=== PATIENT | female | born 1960 | race Caucasian/White ===

== ENCOUNTER 2017-10-04 08:29 | Day surgery (SDC) | payer OTHER ==
[~2017-10-04 08:29] MED LIST: ACETAMINOPHEN; ALPR.5 PO; AMIT10 PO; AMLO5 PO; AMOCLA500 PO; BACL10 PO; CARI350 PO; CIME400 PO; CIPRO; DEXA4 PO; DIFLUCAN; ESOM20 PO; FLUC100; GABA300 PO; HYDACE10B PO; HYDACE7.5; HYDPAM50 PO; HYDR-86 PO; HYDROCODONE; IBUP400 PO; IBUP800; KETO10 PO; LEVFLO500; LIDO5TP; METPRE4DP PO; MORP30ER PO; Maxalt10 MG PO; OXYACE5T PO; OXYC5 PO; Omeprazole20 M1 PO; PROM25 PO; Synthroid25 MCG PO; TIZA4; TRAM50 PO; ZOLP10; ZOLP5 PO
[2017-11-14] MEDS ORDERED: MELO7.5 PO (16:01)
[2017-11-14] MEDS ORDERED: FLUC100 PO (16:01)
[2017-11-14] MEDS ORDERED: METR500 PO (16:02)
[2017-11-14] MEDS ORDERED: D-MANNOSE1 GM PO (16:03)
[2017-11-14] MEDS ORDERED: 5 HTP PO (16:06)
[2017-11-14] MEDS ORDERED: Voltaren100 GM TOP (16:07)
[2017-11-14] MEDS ORDERED: Maxalt Mlt10 MG PO (16:08)
[2017-11-14] MEDS ORDERED: ONDA8 PO (16:09)
[2017-11-14] MEDS ORDERED: FLUCONAZOLE PO (16:15)
== END 2017-10-04 23:11 | disposition home or self-care (01) ==
LOC: MOI MAM 08:29
PROC: 0HBT3ZX Excision of Right Breast, Percutaneous Approach, Diagnostic (ICD-10-PCS; principal; 2017-10-04)
DX: C50.311 Malignant neoplasm of lower-inner quadrant of right female breast (principal); Z17.1 Estrogen receptor negative status [ER-]
CPT/HCPCS: 19083; 88305; 88360; A4648; G0206

== ENCOUNTER 2017-11-20 06:04 | Day surgery (SDC) | payer OTHER ==
[~2017-11-20] VITALS: Ht 160 cm; Wt 121.6 kg
[~2017-11-20 06:04] MED LIST changes: +5 HTP PO; +D-MANNOSE1 GM PO; +FLUC100 PO; +FLUCONAZOLE PO; +MELO7.5 PO; +METR500 PO; +Maxalt Mlt10 MG PO; +ONDA8 PO; +Voltaren100 GM TOP
== END 2017-11-20 22:56 | disposition home or self-care (01) ==
LOC: ORSCMMR 06:04 → ORD 07:30 → ORSCMMR 22:56
PROVIDERS: Surgery
PROC: 02HV33Z Insertion of Infusion Device into Superior Vena Cava, Percutaneous Approach (ICD-10-PCS; principal; 2017-11-20 07:30)
DX: C50.811 Malignant neoplasm of overlapping sites of right female breast (principal); I10 Essential (primary) hypertension; E03.9 Hypothyroidism, unspecified; R06.02 Shortness of breath; E66.01 Morbid (severe) obesity due to excess calories; Z68.42 Body mass index [BMI] 45.0-49.9, adult; Z79.899 Other long term (current) drug therapy
CPT/HCPCS: 77001; C1788; J0690; J1642; J2250; J3010; J7120

== ENCOUNTER 2018-03-17 07:34 | Day surgery (SDC) | payer OTHER ==
[~2018-03-17] VITALS: Ht 160 cm; Wt 116.6 kg
== END 2018-03-17 12:30 | disposition home or self-care (01) ==
LOC: ORSCMMR 07:34 → NM 07:34 → ORSCMMR 10:02 → NM 12:30
PROVIDERS: Surgery
PROC: 07B50ZX Excision of Right Axillary Lymphatic, Open Approach, Diagnostic (ICD-10-PCS; principal; 2018-03-17 11:00)
PROC: 0HBT0ZZ Excision of Right Breast, Open Approach (ICD-10-PCS; principal; 2018-03-17 11:00)
DX: C50.811 Malignant neoplasm of overlapping sites of right female breast (principal); Z17.1 Estrogen receptor negative status [ER-]; D36.0 Benign neoplasm of lymph nodes; I10 Essential (primary) hypertension; K21.9 Gastro-esophageal reflux disease without esophagitis; F41.9 Anxiety disorder, unspecified; E66.01 Morbid (severe) obesity due to excess calories; Z68.42 Body mass index [BMI] 45.0-49.9, adult; Z79.899 Other long term (current) drug therapy
CPT/HCPCS: 19281; 38792; 88305; 88307; 88342; A9520; J0690; J1100; J1885; J2250; J2405; J2710; J3010; J7120; Q9968

== ENCOUNTER → 2019-02-05 | Outpatient (CLI) | payer OTHER | LOC: LAB 18:39 → LAB SHORT 18:39 | DX: N39.0 Urinary tract infection, site not specified (principal) | CPT/HCPCS: 87086 ==

== ENCOUNTER → 2020-02-16 | Outpatient (CLI) | payer OTHER | END | disposition home or self-care (01) | LOC: LAB 18:26 → LAB SHORT 18:26 | DX: R30.9 Painful micturition, unspecified (principal) | CPT/HCPCS: 87077; 87086; 87186 ==

== ENCOUNTER 2020-07-13 18:30 | Emergency (ER) | payer OTHER ==
[~2020-07-13] VITALS: Ht 157.5 cm; Wt 117.9 kg
[~2020-07-13 18:30] MED LIST changes: +CEFP200 PO; +HYDR1TAB94 PO; +TAMS.4ER PO
[2020-07-13 19:07] LABS: BASOPHILS ABSOLUTE AUTO 0.03 K/mm3 (0.00-0.23); BASOPHILS PERCENT AUTO 0 % (0-2); EOSINOPHILS ABSOLUTE AUTO 0.01 K/mm3 (0.00-0.68); EOSINOPHILS PERCENT AUTO 0 % (0-6); Hematocrit 42.5 % (33.0-51.0); Hemoglobin 13.8 g/dL (11.5-16.0); IMMATURE GRAN ABSOLUTE AUTO 0.03 K/mm3 (0.00-0.10); IMMATURE GRAN PERCENT AUTO 0 % (0-1); LYMPHOCYTES ABSOLUTE AUTO 1.37 K/mm3 (0.84-5.20); LYMPHOCYTES PERCENT AUTO 19 % (21-46); MONOCYTES ABSOLUTE AUTO 0.61 K/mm3 (0.16-1.47); MONOCYTES PERCENT AUTO 8 % (4-13); Mean Corpuscular HGB 30.1 pg (26.0-34.0); Mean Corpuscular HGB Conc 32.5 g/dL (31.5-36.5); Mean Corpuscular Volume 93 fL (80-100); Mean Platelet Volume 9.9 fL (9.1-12.4); NEUTROPHILS ABSOLUTE AUTO 5.22 K/mm3 (1.96-9.15); NEUTROPHILS PERCENT AUTO 72 % (41-73); Platelet Count 252 K/mm3 (150-400); RDW Coefficient Variation 12.8 % (11.7-14.2); RDW Standard Deviation 43.9 fL (35.1-46.3); Red Blood Cell Count 4.59 M/mm3 (3.80-5.20); White Blood Cell Count 7.27 K/mm3 (4.00-11.30)
[2020-07-13 19:36] LABS: Troponin I <0.015 ng/mL (0.000-0.040)
[2020-07-13 20:10] LABS: Alanine Aminotransfer (ALT/SGP 26 U/L (12-78); Albumin, Blood 3.9 g/dL (3.4-5.0); Alk Phos 119 U/L (50-136); Anion Gap 5 mmol/L (6-16); Aspartate Aminotrans (AST/SGOT 20 U/L (12-37); Bilirubin, Total 0.5 mg/dL (0.1-1.0); Blood Urea Nitrogen 6 mg/dL (8-24); Bun/Creatinine Ratio 11.7 (12.0-20.0); CO2, Blood 29 mmol/L (21-32); Calcium, Blood 10.1 mg/dL (8.5-10.1); Chloride, Blood 107 mmol/L (98-108); Creatinine, Blood 0.52 mg/dL (0.40-1.00); Globulin, Blood 4.1 g/dL (2.2-4.0); Glomerular Filtration Rate >60 (60-); Glucose, Blood 130 mg/dL (70-99); Potassium, Blood 3.7 mmol/L (3.5-5.5); Sodium, Blood 141 mmol/L (136-145)
== END 2020-07-13 20:36 | disposition home or self-care (01) ==
LOC: ER 18:30
PROVIDERS: Physician Assistant
DX: M54.12 Radiculopathy, cervical region (principal); R07.9 Chest pain, unspecified; M54.5 Low back pain; F41.9 Anxiety disorder, unspecified; E11.9 Type 2 diabetes mellitus without complications; I50.9 Heart failure, unspecified; Z79.899 Other long term (current) drug therapy
CPT/HCPCS: 36415; 71046; 72125; 72128; 72131; 80053; 84484; 85025; 93005; 93010; 96374; 99284-25; J2060

== ENCOUNTER 2021-01-01 20:31 | Emergency (ER) | payer OTHER ==
[~2021-01-01] VITALS: Ht 157.5 cm; Wt 111.1 kg
== END 2021-01-01 23:00 | disposition left against medical advice (07) ==
LOC: ER 20:31
DX: Z53.21 Procedure and treatment not carried out due to patient leaving prior to being seen by health care provider (principal)
CPT/HCPCS: 72100

== ENCOUNTER → 2021-04-14 | Outpatient (CLI) | payer OTHER ==
[2021-04-14 19:11] LABS: BASOPHILS ABSOLUTE AUTO 0.05 K/mm3 (0.00-0.23); BASOPHILS PERCENT AUTO 1 % (0-2); EOSINOPHILS PERCENT AUTO 0 % (0-6); Hematocrit 38.2 % (33.0-51.0); Hemoglobin 12.3 g/dL (11.5-16.0); IMMATURE GRAN ABSOLUTE AUTO 0.02 K/mm3 (0.00-0.10); IMMATURE GRAN PERCENT AUTO 0 % (0-1); LYMPHOCYTES ABSOLUTE AUTO 1.34 K/mm3 (0.84-5.20); LYMPHOCYTES PERCENT AUTO 18 % (21-46); MONOCYTES PERCENT AUTO 8 % (4-13); Mean Corpuscular HGB 29.8 pg (26.0-34.0); Mean Corpuscular HGB Conc 32.2 g/dL (31.5-36.5); Mean Corpuscular Volume 93 fL (80-100); Mean Platelet Volume 10.9 fL (9.1-12.4); NEUTROPHILS ABSOLUTE AUTO 5.37 K/mm3 (1.96-9.15); NEUTROPHILS PERCENT AUTO 73 % (41-73); Platelet Count 241 K/mm3 (150-400); RDW Coefficient Variation 12.8 % (11.7-14.2); RDW Standard Deviation 43.9 fL (35.1-46.3); Red Blood Cell Count 4.13 M/mm3 (3.80-5.20); White Blood Cell Count 7.38 K/mm3 (4.00-11.30)
[2021-04-14 19:17] LABS: Magnesium, Blood 2.1 mg/dL (1.6-2.4); Phosphorus, Blood 2.8 mg/dL (2.5-4.9)
[2021-04-14 19:25] LABS: Anion Gap 3 mmol/L (6-16); Blood Urea Nitrogen 13 mg/dL (8-24); Bun/Creatinine Ratio 20.6 (12.0-20.0); CO2, Blood 29 mmol/L (21-32); Calcium, Blood 9.7 mg/dL (8.5-10.1); Chloride, Blood 107 mmol/L (98-108); Creatinine, Blood 0.63 mg/dL (0.40-1.00); Glomerular Filtration Rate >60 (60-); Glucose, Blood 98 mg/dL (70-99); Potassium, Blood 3.8 mmol/L (3.5-5.5); Sodium, Blood 139 mmol/L (136-145)
== END | disposition home or self-care (01) ==
LOC: LAB SHORT 17:10 → LAB 17:10
PROVIDERS: Family Medicine
DX: E03.9 Hypothyroidism, unspecified (principal); L03.90 Cellulitis, unspecified; R25.2 Cramp and spasm
CPT/HCPCS: 80048; 83735; 84100; 84443; 85025

== ENCOUNTER → 2021-05-02 | Outpatient (CLI) | payer OTHER ==
[2021-05-02 19:17] LABS: Source, Urine Voided
[2021-05-02 19:48] LABS: Appearance, Urine Hazy (Clear); Bilirubin, Urine Neg (Neg); Blood, Urine Neg (Neg); Color, Urine Yellow (P-Yellow); Glucose Qualitative, Urine Neg (Neg); Ketones, Urine Neg (Neg); Leukocyte Esterase, Urine Neg (Neg); Nitrite, Urine Neg (Neg); Protein, Urine Neg (Neg); Urobilinogen, Urine NORM (Normal)
[2021-05-02 20:06] LABS: Amorphous Mod (0-Heavy); Bacteria Rare /hpf; Red Blood Cells, Urine Not Seen /hpf (0-2); Squamous Epithelial Cells Rare /hpf (Few); White Blood Cells, Urine 0-2 /hpf (0-5)
== END | disposition home or self-care (01) ==
LOC: LAB SHORT 17:00
PROVIDERS: Nurse Practitioner Family
DX: N39.0 Urinary tract infection, site not specified (principal)
CPT/HCPCS: 81001

== ENCOUNTER 2024-10-25 00:42 | Inpatient (IN) | payer OTHER ==
[~2024-10-25] VITALS: Ht 157.5 cm; Wt 109.6 kg
[~2024-10-25 00:42] MED LIST changes: +BUMETANIDE2 M6 PO; +CEPH500 PO; +CINACALCET HCL30 M1 PO; +Clotrimazole-Be15 GM TP; +Diflucan100 MG PO; +METO5 PO; +MS Contin15 MG PO; +POTA10T PO; +RIZATRIPTAN10 M3 PO; +SPIRONOLACTONE25 MG PO
[2024-10-25] MEDS ORDERED: Ketorolac Tromethamine 30mg Vial IV ONE (04:50)
[2024-10-25] MEDS ORDERED: CefTRIAXone Sodium 1,000 MG in NS 50 ML IV ONE (04:50)
[2024-10-25] MEDS ORDERED: Trimethoprim/Sulfamethoxazole DS Tab PO ONE (04:50)
[2024-10-25] MEDS ORDERED: Diphth,Pertuss(Acell),Tet Vac 0.5 ML VIAL IM ONE (04:50)
[2024-10-25] MEDS ORDERED: Morphine Sulfate 10 MG/ML 1MLSYR IV ONE (05:25)
[2024-10-25 05:38] LABS: BASOPHILS ABSOLUTE AUTO 0.06 K/mm3 (0.00-0.23); BASOPHILS PERCENT AUTO 1 % (0-2); EOSINOPHILS PERCENT AUTO 2 % (0-6); Hematocrit 39.5 % (33.0-51.0); Hemoglobin 12.9 g/dL (11.5-16.0); IMMATURE GRAN ABSOLUTE AUTO 0.09 K/mm3 (0.00-0.10); IMMATURE GRAN PERCENT AUTO 1 % (0-1); LYMPHOCYTES ABSOLUTE AUTO 1.73 K/mm3 (0.84-5.20); LYMPHOCYTES PERCENT AUTO 19 % (21-46); MONOCYTES ABSOLUTE AUTO 0.96 K/mm3 (0.16-1.47); MONOCYTES PERCENT AUTO 11 % (4-13); Mean Corpuscular HGB Conc 32.7 g/dL (31.5-36.5); Mean Corpuscular Volume 95 fL (80-100); NEUTROPHILS ABSOLUTE AUTO 5.98 K/mm3 (1.96-9.15); NEUTROPHILS PERCENT AUTO 66 % (41-73); Platelet Count 280 K/mm3 (150-400); RDW Coefficient Variation 12.7 % (11.7-14.2); RDW Standard Deviation 44.3 fL (35.1-46.3); Red Blood Cell Count 4.16 M/mm3 (3.80-5.20); White Blood Cell Count 9.02 K/mm3 (4.00-11.30)
[2024-10-25] MEDS ORDERED: Ondansetron HCl 2 MG / ML 2ML Vial IV PRN (05:45)
[2024-10-25] MEDS ORDERED: FLU VACC TS2024-25(6MOS UP)/PF 45 MCG/0.5 ML SYRINGE IM ONE (05:45)
[2024-10-25] MEDS ORDERED: FentaNYL Citrate 50 MCG/ML 2 ML Injection IV PRN (05:45)
[2024-10-25] MEDS ORDERED: NS 1,000 ML IV ONE (05:45)
[2024-10-25 05:59] LABS: Albumin, Blood 3.3 g/dL (3.4-5.0); Albumin/Globulin Ratio 0.7 (0.8-1.8); Bilirubin, Total 0.7 mg/dL (0.1-1.0); Bun/Creatinine Ratio 33.2 (12.0-20.0); Calcium, Blood 10.4 mg/dL (8.5-10.1); Creatinine, Blood 0.81 mg/dL (0.40-1.00); Globulin, Blood 4.5 g/dL (2.2-4.0); Magnesium, Blood 2.3 mg/dL (1.6-2.4); Potassium, Blood 3.4 mmol/L (3.5-5.5); Total Protein, Blood 7.8 g/dL (6.4-8.2)
[2024-10-25] MEDS ORDERED: Norco 7.5-3251 EACH PO (06:07)
[2024-10-25] MEDS ORDERED: Potassium Chl 20MEQ/Water100ML 100 ML IV SCH (06:30)
[2024-10-25] MEDS ORDERED: Gabapentin 300 MG Cap PO PRN (06:50)
[2024-10-25] MEDS ORDERED: HYDROcodone 7.5-APAP 325 TAB PO PRN (06:50)
[2024-10-25] MEDS ORDERED: Ampicillin Sod/Sulbactam Sod 3 GM in NS 100 ML IV SCH (07:12)
[2024-10-25] MEDS ORDERED: Levothyroxine Sodium 0.05 MG Tab PO SCH (07:17)
[2024-10-25 07:44] VITALS: BP 129/91
--- NOTE | 2024-10-25 08:05 | NUR ---
Pt arrived to [address] via wheelchair, she is able to stand and tx self to bed, a/ox4, pleasnant and cooperative with care, follows commands well, denies pain at this time, lungs are clear t/o, resp even and unlabored, no cough noted, on r/a, hrr, 4+ edema noted to b/l le, cap refill <3 sec, vs stable, afebrile, piv to inner left wrist, is painful, will look at having another placed, btx4, reports last bm early this am, voids without diff, skin has red lle up her posterior thigh into the buttocks, with blisters, maew, uses a tool to help move her left leg, donavan, oriented to room layout and call system, call light reach.
[2024-10-25] MEDS ORDERED: Cinacalcet HCL 30 MG Tab PO SCH (09:00)
[2024-10-25] MEDS ORDERED: Enoxaparin 40 MG/0.4 ML SYR SC SCH (09:00)
[2024-10-25] MEDS ORDERED: Spironolactone 25 MG Tab PO SCH (09:00)
[2024-10-25] MEDS ORDERED: Metolazone 5 MG Tab PO SCH (09:00)
[2024-10-25] MEDS ORDERED: Bumetanide 1 MG Tab PO SCH (09:00)
[2024-10-25] MEDS ORDERED: Lactobacil 2-S.Thermo-Bifido 1 1 Cap PO SCH (09:00)
[2024-10-25] MEDS ORDERED: GABA300 PO (12:35)
[2024-10-25 15:11] VITALS: BP 101/62
--- NOTE | 2024-10-25 19:15 | NUR ---
pt slept most of the day as she was up all night last night, power glide was placed by charge authorizer to [place] site is clear and patent, she is using bsc without diff, no further changes this shift. call light in reach.
[2024-10-25] MEDS ORDERED: Morphine Sulfate 15 MG TABCR PO SCH (19:20)
[2024-10-25 19:35] VITALS: BP 125/66
[2024-10-26 04:31] VITALS: BP 111/56
[2024-10-26] MEDS ORDERED: Ketorolac Tromethamine 15mg Vial IV PRN (04:55)
[2024-10-26 05:44] LABS: BASOPHILS ABSOLUTE AUTO 0.05 K/mm3 (0.00-0.23); BASOPHILS PERCENT AUTO 1 % (0-2); EOSINOPHILS ABSOLUTE AUTO 0.09 K/mm3 (0.00-0.68); EOSINOPHILS PERCENT AUTO 1 % (0-6); Hematocrit 33.3 % (33.0-51.0); Hemoglobin 11.1 g/dL (11.5-16.0); IMMATURE GRAN ABSOLUTE AUTO 0.12 K/mm3 (0.00-0.10); IMMATURE GRAN PERCENT AUTO 2 % (0-1); LYMPHOCYTES ABSOLUTE AUTO 1.77 K/mm3 (0.84-5.20); LYMPHOCYTES PERCENT AUTO 26 % (21-46); MONOCYTES ABSOLUTE AUTO 0.73 K/mm3 (0.16-1.47); MONOCYTES PERCENT AUTO 11 % (4-13); Mean Corpuscular HGB 31.8 pg (26.0-34.0); Mean Corpuscular HGB Conc 33.3 g/dL (31.5-36.5); Mean Corpuscular Volume 95 fL (80-100); Mean Platelet Volume 9.8 fL (9.1-12.4); NEUTROPHILS ABSOLUTE AUTO 4.08 K/mm3 (1.96-9.15); NEUTROPHILS PERCENT AUTO 60 % (41-73); Platelet Count 268 K/mm3 (150-400); Red Blood Cell Count 3.49 M/mm3 (3.80-5.20); White Blood Cell Count 6.84 K/mm3 (4.00-11.30)
[2024-10-26 06:11] LABS: Albumin, Blood 2.7 g/dL (3.4-5.0); Albumin/Globulin Ratio 0.7 (0.8-1.8); Bilirubin, Total 0.4 mg/dL (0.1-1.0); Bun/Creatinine Ratio 25.3 (12.0-20.0); Calcium, Blood 9.6 mg/dL (8.5-10.1); Creatinine, Blood 0.87 mg/dL (0.40-1.00); Globulin, Blood 4.1 g/dL (2.2-4.0); Potassium, Blood 3.2 mmol/L (3.5-5.5); Total Protein, Blood 6.8 g/dL (6.4-8.2)
[2024-10-26 07:38] VITALS: BP 127/80
[2024-10-26] MEDS ORDERED: Potassium Chloride 10 Meq Tablet SA PO ONE (12:20)
[2024-10-26] MEDS ORDERED: Lactated Ringer's 1,000 ML IV SCH (12:30)
[2024-10-26] MEDS ORDERED: Nystatin 100,000 Unit/ML Susp 5 ML UDC SS SCH (13:00)
--- NOTE | 2024-10-26 15:53 | NUR ---
Upon receivng a referral for spiritual care, I visited the patient. She is sitting on the EOB and is alert. She tells me about her her long medical history, her current medical problems and the plan of care moving forward. SHe also talks at length about her strong Christain neymar and how she finds strength in the joseph of the Lord and that will continue to defy the odds and overcome whatever is thrown her way. She states that even in the dark and weary places she finds her hope in the Lord through prayer, inspirational reading and singing to God. She voices high praise of the clinical team and how kind, excellent and caring they have been. I normalized her experience, reinforced helpful attitudes and practices and provided therapeutic listening and prayer. Patient responded quite well and showed signs of an elevated mood and reduced stress. She stated that she felt the tension leave her body as I prayed for her. Spiritual care will remain available.
[2024-10-26 16:03] VITALS: BP 122/83
--- NOTE | 2024-10-26 18:44 | NUR ---
PT ALERT AND ORIENTED X4, VSS, RA. ON SCHEDULED MS CONTIN FOR PAIN AND PRN HYDROCODONE EFFECTIVE. SBA TO BATHROOM OR BSC. PT HAD 3 LOOSE BM TODAY. IV ABX CONTINUED AND 2 LITERS LR BEGAN. CALL LIGHT IN REACH, ABLE TO MAKE NEEDS KNOWN.
[2024-10-26 19:53] VITALS: BP 113/57
[2024-10-27 05:06] VITALS: BP 132/67
--- NOTE | 2024-10-27 05:34 | NUR ---
SHIFT SUMMARY A&OX4, PLEASANT,CALLS APPROPRIATELY/MAKES NEEDS KNOWN/ AMBULATES IN ROOM W/FWW, GOOD SAFETY AWARENESS. IV ANTIBIOTICS FOR CELLULITS ONGOING, HAVING LOOSE STOOLS SINCE YESTERDAY WHICH HAVE DECREASED IN FREQUENCY , LR INFUSING AT 75ML/HR (ON SECOND & LAST BAG), ACUTE BURNING PAIN (LEGS, THREE BLISTERS BARBARA. ONE ON BUTTOCK) AND CHRONIC PAIN (LOW BACK,HIPS) AND HAS REVEIVED SCHEDULED AND PRN PAIN MEDS (NORCO MORPHINE GABAPENTIN) PER JAN. HIGHEST PAIN SCORE 8/10 LOWEST PAIN SCORE 4/10. VSS, LABS COLLECTED FROM [facility] MIDLINE CATHETER THIS MORNING. SLEPT AT INTERVALS HARD TO GET COMFORTABLE D/T LE CELLULITIS/PAIN ISSUES.
[2024-10-27 07:20] LABS: BASOPHILS ABSOLUTE AUTO 0.05 K/mm3 (0.00-0.23); BASOPHILS PERCENT AUTO 1 % (0-2); EOSINOPHILS PERCENT AUTO 0 % (0-6); Hematocrit 36.5 % (33.0-51.0); Hemoglobin 12.2 g/dL (11.5-16.0); IMMATURE GRAN ABSOLUTE AUTO 0.19 K/mm3 (0.00-0.10); IMMATURE GRAN PERCENT AUTO 3 % (0-1); LYMPHOCYTES ABSOLUTE AUTO 1.66 K/mm3 (0.84-5.20); LYMPHOCYTES PERCENT AUTO 23 % (21-46); MONOCYTES PERCENT AUTO 11 % (4-13); Mean Corpuscular HGB 31.2 pg (26.0-34.0); Mean Corpuscular HGB Conc 33.4 g/dL (31.5-36.5); Mean Corpuscular Volume 93 fL (80-100); Mean Platelet Volume 9.6 fL (9.1-12.4); NEUTROPHILS ABSOLUTE AUTO 4.47 K/mm3 (1.96-9.15); NEUTROPHILS PERCENT AUTO 62 % (41-73); Platelet Count 340 K/mm3 (150-400); RDW Standard Deviation 44.5 fL (35.1-46.3); Red Blood Cell Count 3.91 M/mm3 (3.80-5.20); White Blood Cell Count 7.17 K/mm3 (4.00-11.30)
[2024-10-27 07:44] LABS: Bun/Creatinine Ratio 24.1 (12.0-20.0); Calcium, Blood 10.1 mg/dL (8.5-10.1); Creatinine, Blood 0.79 mg/dL (0.40-1.00); Potassium, Blood 3.2 mmol/L (3.5-5.5)
[2024-10-27 08:10] VITALS: BP 121/74
[2024-10-27] MEDS ORDERED: Potassium Chloride 10 Meq Tablet SA PO ONE (09:00)
[2024-10-27] MEDS ORDERED: Rizatriptan Benzoate 10 MG / TAB SoluTab SL PRN (14:25)
[2024-10-27 15:18] VITALS: BP 134/70
--- NOTE | 2024-10-27 15:32 | NUR ---
SHIFT SUMMARY- PT IS ALERT, ORIENTED AND INDEPDENT IN THE ROOM. SHE HAS HAD A "NASTY" HEADACHE T/O THE SHIFT (PT STATED). SPOKE TO DR FRAGA AND PT HOME MED FOR MIGRAINES WAS ORDERED. PT DOES STATE SHE USUALLY TAKES 600MG OF GABAPENTIN AT BEDTIME. HER ORDER IS WRITTEN FOR 300 MG Q4, SHE DOES REQUEST THE 600 AT BEDTIME IF POSSIBLE, SPOKE TO DR FRAGA AND RECIEVED A VERBAL ORDER FOR PO GABAPENTIN AT BEDTIME SCHEDULED. WITH THE PRN DOSE AVAILABLE WHILE AWAKE, NOT TO BE GIVEN AT THE SAME TIME. PT HAS A PRN DOSE FOR MIGRAIN MEDS, SHE HAS RECIEVED THE FIRST DOSE OF TID PRN DOSING. PT STATES SHE CAN NOT LAY IN A BED D/T HER NEUROPATHY PROVIDED A RECLINER WITH MULTIPLE PILLOWS. PT SITTING UP I THE RECLINER, NO S&S OF ACUTE DISTRESS AT THIS TIME, SHE IS STILL HAVING HEAD PAIN AT THIS TIME WILL CTM AND PASS ON TO NIGHT RN ION BEDSIDE REPORT.
[2024-10-27] MEDS ORDERED: Gabapentin 300 MG Cap PO PRN (18:20)
[2024-10-27] MEDS ORDERED: NS 250 ML IV PRN (19:20)
[2024-10-27] MEDS ORDERED: Gabapentin 300 MG Cap PO SCH (21:00)
[2024-10-27 23:12] VITALS: BP 122/66
[2024-10-28 05:24] VITALS: BP 126/59
[2024-10-28 07:25] VITALS: BP 130/112
[2024-10-28] MEDS ORDERED: Meloxicam 7.5 MG Tab PO SCH (09:00)
[2024-10-28] MEDS ORDERED: Potassium Chloride 20 MEQ TabCR PO SCH (10:00)
[2024-10-28] MEDS ORDERED: CefTRIAXone Sodium 1,000 MG in NS 100 ML IV SCH (12:06)
[2024-10-28] MEDS ORDERED: Miconazole Nitrate 2% 85 GM PWD TOP PRN (12:35)
[2024-10-28] MEDS ORDERED: AMOCLA875 PO (13:15)
[2024-10-28] MEDS ORDERED: VISBIOME 112.51 EACH PO (13:16)
[2024-10-28] MEDS ORDERED: NYSTATIN100000 U13 MT (13:16)
--- NOTE | 2024-10-28 16:11 | NUR ---
DISCHARGE NOTE PT DISCHARGED TO HOME, PICKED UP BY HER . POWERGLIDE REMOVED. PERSONAL BELONGINGS RETURNED. DISCHARGE EDUCATION AND INFORMATION PROVIDED AND REVIEWED WITH THE PT. MEDICATIONS FAXED TO THE PHARMACY OF HER CHOICE.
== END 2024-10-28 16:11 | disposition home or self-care (01) | DRG 603 ==
LOC: ER 00:42 → MEDS 05:30 → ENPENDDIS 10-28 14:03 → MEDS 10-28 16:11
PROVIDERS: Emergency Medicine; Family Medicine; ADMIT Internal Medicine
DX: L03.116 Cellulitis of left lower limb (principal); B37.0 Candidal stomatitis; G89.29 Other chronic pain; M79.7 Fibromyalgia; E21.3 Hyperparathyroidism, unspecified; E03.9 Hypothyroidism, unspecified; G62.9 Polyneuropathy, unspecified; R19.7 Diarrhea, unspecified; F41.9 Anxiety disorder, unspecified; Z85.3 Personal history of malignant neoplasm of breast; Z87.440 Personal history of urinary (tract) infections; Z79.899 Other long term (current) drug therapy; Z79.890 Hormone replacement therapy; Z91.048 Other nonmedicinal substance allergy status; Z88.8 Allergy status to other drugs, medicaments and biological substances; Z91.040 Latex allergy status; Z88.5 Allergy status to narcotic agent; Z87.19 Personal history of other diseases of the digestive system; Z90.11 Acquired absence of right breast and nipple; Z90.49 Acquired absence of other specified parts of digestive tract; Z98.890 Other specified postprocedural states; Z98.1 Arthrodesis status
CPT/HCPCS: 36415; 73701; 80048; 80053; 83605; 83735; 83880; 85025; 90715; 97110; 97116; 97161; 97530; 99284-25; A9270; J0295; J0696; J1650; J1885; J2270; J2405; J3480; J7030; J7050; J7120; Q9967

== ENCOUNTER → 2024-11-17 | Outpatient (CLI) | payer OTHER ==
[~2024-11-17] MED LIST changes: +AMOCLA875 PO; +NYSTATIN100000 U13 MT; +Norco 7.5-3251 EACH PO; +VISBIOME 112.51 EACH PO
== END | disposition home or self-care (01) ==
LOC: LAB 16:00 → LAB SHORT 16:00
DX: N39.0 Urinary tract infection, site not specified (principal)
CPT/HCPCS: 87077; 87086; 87186

== ENCOUNTER 2025-03-07 00:55 | Inpatient (IN) | payer OTHER ==
[~2025-03-07] VITALS: Ht 162.6 cm; Wt 103.4 kg
[2025-03-07 01:43] LABS: BASOPHILS ABSOLUTE AUTO 0.06 K/mm3 (0.00-0.23); BASOPHILS PERCENT AUTO 1 % (0-2); EOSINOPHILS PERCENT AUTO 0 % (0-6); Hematocrit 43.4 % (33.0-51.0); Hemoglobin 14.9 g/dL (11.5-16.0); IMMATURE GRAN PERCENT AUTO 1 % (0-1); LYMPHOCYTES ABSOLUTE AUTO 1.74 K/mm3 (0.84-5.20); LYMPHOCYTES PERCENT AUTO 18 % (21-46); MONOCYTES PERCENT AUTO 9 % (4-13); Mean Corpuscular HGB 31.6 pg (26.0-34.0); Mean Corpuscular HGB Conc 34.3 g/dL (31.5-36.5); Mean Corpuscular Volume 92 fL (80-100); NEUTROPHILS ABSOLUTE AUTO 6.88 K/mm3 (1.96-9.15); NEUTROPHILS PERCENT AUTO 71 % (41-73); RDW Coefficient Variation 13.2 % (11.7-14.2); RDW Standard Deviation 44.3 fL (35.1-46.3); Red Blood Cell Count 4.71 M/mm3 (3.80-5.20); White Blood Cell Count 9.68 K/mm3 (4.00-11.30)
[2025-03-07 01:55] LABS: Platelet Count 153 K/mm3 (150-400)
[2025-03-07 02:22] LABS: Albumin, Blood 3.8 g/dL (3.4-5.0); Bilirubin, Total 0.7 mg/dL (0.1-1.0); Bun/Creatinine Ratio 27.4 (12.0-20.0); Calcium, Blood 10.2 mg/dL (8.5-10.1); Creatinine, Blood 0.69 mg/dL (0.40-1.00); Globulin, Blood 3.9 g/dL (2.2-4.0); Potassium, Blood 2.7 mmol/L (3.5-5.5); Total Protein, Blood 7.7 g/dL (6.4-8.2)
[2025-03-07] MEDS ORDERED: Potassium Chl 20MEQ/Water100ML 100 ML IV SCH (02:50)
[2025-03-07] MEDS ORDERED: Aspirin 81 MG Chew PO ONE (03:10)
[2025-03-07] MEDS ORDERED: NS 1,000 ML IV SCH (03:10)
[2025-03-07 03:39] LABS: Magnesium, Blood 1.6 mg/dL (1.6-2.4); Phosphorus, Blood 2.8 mg/dL (2.5-4.9)
[2025-03-07] MEDS ORDERED: Atorvastatin 40 MG Tab PO SCH (04:00)
[2025-03-07] MEDS ORDERED: Clopidogrel Bisulfate 300 MG TABLET PO ONE (04:00)
[2025-03-07] MEDS ORDERED: Ondansetron HCl 2 MG / ML 2ML Vial IV PRN (04:05)
[2025-03-07] MEDS ORDERED: Nitroglycerin 0.4 MG SUBL SL PRN (04:05)
[2025-03-07] MEDS ORDERED: FentaNYL Citrate 50 MCG/ML 2 ML Injection IV PRN (04:05)
[2025-03-07 04:51] LABS: Anti-Xa UFH, PHA Monitoring <0.10 IU/mL; International Normalized Ratio 0.96; Prothrombin Time Results 10.3 Sec (9.7-11.5)
[2025-03-07] MEDS ORDERED: Dose Adjust by Pharmacy XX STA (05:51)
[2025-03-07] MEDS ORDERED: Heparin Sodium,Porcine/0.5 NS 500 ML IV SCH (05:55)
[2025-03-07] MEDS ORDERED: Heparin Sodium 5000 Units/ML 1ML MDV IV ONE (05:55)
[2025-03-07 06:40] VITALS: BP 138/102
[2025-03-07] MEDS ORDERED: Potassium Chloride 20 MEQ TabCR PO ONE (06:40)
--- NOTE | 2025-03-07 06:41 | NUR ---
ARRIVAL TO UNIT - PT ARRIVES TO [facility] AT 0544. REPORT RECEIVED FROM PARACHUTE INSPECTOR GARIMA. PT ABLE TO TRANSFER FROM [facility] TO HOSPITAL BED INDEPENDENTLY. PT IS ALERT AND ORIENTED, OBEYS COMMANDS, PLEASANT AND COOPERATIVE WITH CARE, VERBALIZES NEEDS. POTASSIUM LOW, PT UNABLE TO TOLERATE IV POTASSIUM IN ANY IV, MD NOTIFIED, PO POTASSIUM ORDERED. HEPARIN BOLUS GIVEN, HEPARIN GTT STARTED AT 22.8 AND 15U/KG/HR WITH AADJUSTED WEIGHT OF 76KG. PT HAS 4+ PITTING EDEMA IN BLE WITH WEEPING. PT ENDORSES SOB, IS ON ROOM AIR, SATS ABOVE 90%. SHE ALSO ENDORSES CHEST PRESSURE, BUT DENIES CHEST PAIN. MED REC COMPLETED WITH PT. WILL GIVE REPORT TO ONCOMING RN.
[2025-03-07 08:21] VITALS: BP 104/59
[2025-03-07] MEDS ORDERED: Clopidogrel Bisulfate 75 MG Tab PO SCH (09:00)
[2025-03-07] MEDS ORDERED: Gabapentin 300 MG Cap PO PRN (10:05)
[2025-03-07] MEDS ORDERED: HYDROcodone 7.5-APAP 325 TAB PO PRN (10:10)
[2025-03-07] MEDS ORDERED: Rizatriptan Benzoate 10 MG / TAB SoluTab SL PRN (10:40)
[2025-03-07 11:08] LABS: BASOPHILS ABSOLUTE AUTO 0.04 K/mm3 (0.00-0.23); BASOPHILS PERCENT AUTO 0 % (0-2); EOSINOPHILS PERCENT AUTO 0 % (0-6); Hematocrit 39.1 % (33.0-51.0); Hemoglobin 13.5 g/dL (11.5-16.0); IMMATURE GRAN ABSOLUTE AUTO 0.06 K/mm3 (0.00-0.10); IMMATURE GRAN PERCENT AUTO 1 % (0-1); LYMPHOCYTES ABSOLUTE AUTO 1.93 K/mm3 (0.84-5.20); LYMPHOCYTES PERCENT AUTO 22 % (21-46); MONOCYTES ABSOLUTE AUTO 0.91 K/mm3 (0.16-1.47); MONOCYTES PERCENT AUTO 10 % (4-13); Mean Corpuscular HGB Conc 34.5 g/dL (31.5-36.5); Mean Corpuscular Volume 90 fL (80-100); Mean Platelet Volume 10.2 fL (9.1-12.4); NEUTROPHILS ABSOLUTE AUTO 5.96 K/mm3 (1.96-9.15); NEUTROPHILS PERCENT AUTO 67 % (41-73); Platelet Count 228 K/mm3 (150-400); RDW Coefficient Variation 13.2 % (11.7-14.2); RDW Standard Deviation 43.4 fL (35.1-46.3); Red Blood Cell Count 4.35 M/mm3 (3.80-5.20)
[2025-03-07] MEDS ORDERED: Morphine Sulfate 15 MG TABCR PO SCH ×2 (11:25→16:00)
[2025-03-07 11:27] LABS: Albumin, Blood 3.4 g/dL (3.4-5.0); Albumin/Globulin Ratio 0.9 (0.8-1.8); Bilirubin, Total 0.8 mg/dL (0.1-1.0); Bun/Creatinine Ratio 26.9 (12.0-20.0); Calcium, Blood 10.3 mg/dL (8.5-10.1); Creatinine, Blood 0.71 mg/dL (0.40-1.00); Globulin, Blood 3.9 g/dL (2.2-4.0); Potassium, Blood 2.7 mmol/L (3.5-5.5); Total Protein, Blood 7.3 g/dL (6.4-8.2)
[2025-03-07] MEDS ORDERED: Potassium Chloride 10 Meq Tablet SA PO SCH (12:30)
[2025-03-07 12:34] VITALS: BP 121/68
[2025-03-07 15:05] VITALS: BP 114/71
--- NOTE | 2025-03-07 19:31 | NUR ---
SHIFT SUMMARY: PT A&OX4. FOLLOWS COMMANDS AND MAKES NEEDS KNOWN TO STAFF. PT GOT UP TO THE BATHROOM WITH 1P ASSIST WITH FWW. PT REMAINED FREE OF ANY CP AND SOB DURING SHIFT. HEPARIN GTT CONTINUES. PTS TROPONIN CONTINUES TO TREND DOWN THROUGHOUT SHIFT. NO NEW COMPLAINTS OR SIGNIFICANT EVENTS HAPPENED DURING THIS SHIFT. REPORT TO ROSANA BIRD TO ASSUME CARE OF PT.
[2025-03-07] MEDS ORDERED: Clarify Drug Order XX ONE (20:25)
[2025-03-07 20:29] VITALS: BP 124/85
[2025-03-07] MEDS ORDERED: Gabapentin 300 MG Cap PO SCH (21:00)
[2025-03-07] MEDS ORDERED: Doxycycline Hyclate 100 MG TAB PO SCH (21:00)
[2025-03-08] MEDS ORDERED: Morphine Sulfate 15 MG TABCR PO SCH
[2025-03-08 00:52] VITALS: BP 144/87
[2025-03-08 04:59] LABS: BASOPHILS ABSOLUTE AUTO 0.05 K/mm3 (0.00-0.23); BASOPHILS PERCENT AUTO 0 % (0-2); EOSINOPHILS ABSOLUTE AUTO 0.01 K/mm3 (0.00-0.68); EOSINOPHILS PERCENT AUTO 0 % (0-6); Hematocrit 41.6 % (33.0-51.0); Hemoglobin 13.7 g/dL (11.5-16.0); IMMATURE GRAN ABSOLUTE AUTO 0.08 K/mm3 (0.00-0.10); IMMATURE GRAN PERCENT AUTO 1 % (0-1); LYMPHOCYTES ABSOLUTE AUTO 1.91 K/mm3 (0.84-5.20); LYMPHOCYTES PERCENT AUTO 14 % (21-46); MONOCYTES ABSOLUTE AUTO 1.16 K/mm3 (0.16-1.47); MONOCYTES PERCENT AUTO 9 % (4-13); Mean Corpuscular HGB 30.6 pg (26.0-34.0); Mean Corpuscular HGB Conc 32.9 g/dL (31.5-36.5); Mean Corpuscular Volume 93 fL (80-100); Mean Platelet Volume 10.1 fL (9.1-12.4); NEUTROPHILS PERCENT AUTO 76 % (41-73); Platelet Count 227 K/mm3 (150-400); RDW Coefficient Variation 13.4 % (11.7-14.2); RDW Standard Deviation 45.7 fL (35.1-46.3); Red Blood Cell Count 4.47 M/mm3 (3.80-5.20); White Blood Cell Count 13.31 K/mm3 (4.00-11.30)
[2025-03-08 05:09] VITALS: BP 137/81
[2025-03-08] MEDS ORDERED: Dose Adjust by Pharmacy XX STA (05:15)
[2025-03-08] MEDS ORDERED: Heparin Sodium 5000 Units/ML 1ML MDV IV ONE (05:15)
[2025-03-08 05:32] LABS: Bun/Creatinine Ratio 29.8 (12.0-20.0); Calcium, Blood 9.9 mg/dL (8.5-10.1); Creatinine, Blood 0.81 mg/dL (0.40-1.00); Potassium, Blood 3.2 mmol/L (3.5-5.5)
--- NOTE | 2025-03-08 06:57 | NUR ---
PT STABLE THROUGHOUT THE SHIFT. PT AOX4, 1 ASSIST TO BR. PT IS STEADY ON FEET WITH WALKER. PT IS ABLE TO USE THE CALL LIGHT AND MAKE NEEDS KNOWN. PT IS ON ROOM AIR WHILE AWAKE BUT IS PLACED ON 2L O2 BY NC WHEN SLEEPING D/T DESAT INTO MID 80S. PT DID C/O MIGRAINE/HEADACHE THIS AM AND WAS MEDICATED FOR THAT. PT CONTINUES TO TOLERATE HEPARIN INFUSION WELL W/O S/S BLEEDING/BRUISING.
[2025-03-08 08:13] VITALS: BP 122/77
[2025-03-08] MEDS ORDERED: Bumetanide 1 MG Tab PO SCH (09:00)
[2025-03-08] MEDS ORDERED: Levothyroxine Sodium 0.05 MG Tab PO SCH (09:00)
--- NOTE | 2025-03-08 09:32 | NUR ---
"Spiritual Care Visit | Pt. Request Pt. is awake and in a recliner when she welcomes my visit. Facilitated a life review. Listened with empathy and Interest. Pt. was verbalizing details of her hospitalization as well as her family. Pastoral Care is given when Pt. shares of the limitations of both her and her husbands health. Considered Matters of neymar and belief. During the visit Dr. Barry arrived, so this this letter of credit clerk excused himself. Pt. verbalized gratitude for the spiritual care visit."
[2025-03-08] MEDS ORDERED: Rivaroxaban 2.5 MG TABLET PO SCH (09:55)
[2025-03-08] MEDS ORDERED: Morphine Sulfate IR 15 MG Tab PO PRN (09:55)
[2025-03-08] MEDS ORDERED: Rivaroxaban 10 MG Tab PO SCH (09:56)
[2025-03-08] MEDS ORDERED: Metolazone 5 MG Tab PO SCH (10:00)
[2025-03-08] MEDS ORDERED: Bumetanide 0.25 MG/ML 4ML ViaL IV SCH (10:00)
[2025-03-08] MEDS ORDERED: Spironolactone 25 MG Tab PO SCH (10:00)
[2025-03-08 12:47] VITALS: BP 123/90
[2025-03-08] MEDS ORDERED: Miconazole Nitrate 2% 85 GM PWD TOP SCH (14:00)
[2025-03-08 16:16] VITALS: BP 104/77
--- NOTE | 2025-03-08 17:20 | NUR ---
SHIFT SUMMARY: PT A&OX4. FOLLOWS COMMANDS AND MAKES NEEDS KNOWN TO STAFF. PT HAS COMPLAINED OF A HEADACHE MOST OF THE DAY. PT HAS HAD NO ACUTE NEURO SYMPTOMS. PT HAS DENIED ANY COMPLAINTS OF CP, PRESSURE OR TIGHTNESS DURING SHIFT. PTS HR HAS BEEN TRENING IN THE 90-LOW 100'S THIS SHIFT. BLOOD PRESSURE STABLE. PT TAKEN OFF HEPARIN GTT AND STARTED ON ELEQUIS. PT WAS PLACED ON 2L NC DUE TO DESAT TO THE HIGH 80'S WHILE AWAKE. PROVIDER AWARE. RT COSULTED ABOUT [employer] SLEEP TEST TONIGHT FOR DESAT WHILE SLEEPING. PT REPORTS SLIGHT SOB OFF AND ON DURING SHIFT THAT IS RELIEVED WITH POSITION CHANGES. PT WAS ABLE TO GET UP TO THE BSC INDEPENDENTLY AND HAD A LARGE AMOUNT OF URINARY OUTPUT AFTER RECIEVEING DIURETICSL REPORTS TIRING EASILY WITH ACTVITY. RLE WAS WRAPPED PER PROVIDER ORDERS. NO OTHER SIGNIFICANT EVENTS HAPPENED DURING THIS SHIFT. WILL CONTINUE TO CARE FOR PT TILL END OF SHIFT.
[2025-03-08 21:53] VITALS: BP 124/94
[2025-03-08] MEDS ORDERED: Ketorolac Tromethamine 15mg Vial IV PRN (22:20)
[2025-03-09] VITALS (7 sets, daily range): BP systolic 107–126; BP diastolic 64–91
--- NOTE | 2025-03-09 06:48 | NUR ---
PT STABLE THOUGHOUT THE SHIFT. PT AOX4, ABLE TO USE CALL LIGHT AND MAKE NEEDS KNOWN. PT IS SBA ASSIST TO BR WITH WALKER. PT DID HAVE OVERNIGHT OXYGEN STUDY DONE AND DID DROP TO 76% ON ROOM AIR WHILE SLEEPING AND MAINTAINED AT 76% FOR ABOUT FIVE MINUTES BEFORE 1L O2 WAS APPLIED. 1L O2 BROUGHT PT O2 SAT UP ABOVE 90%. PT DID ALSO CONTINUE TO C/O MIGRAINE HEADACHE, TORADOL GIVEN X2 WITH GOOD EFFECT. PT WAS ALSO GIVEN PO MORPHINE IR WHICH SHE TAKES CHRONICALLY AT HOME. VITAL SIGNS OTHERWISE REMAINED WNL.
[2025-03-09 07:17] LABS: BASOPHILS ABSOLUTE AUTO 0.04 K/mm3 (0.00-0.23); BASOPHILS PERCENT AUTO 0 % (0-2); EOSINOPHILS PERCENT AUTO 0 % (0-6); Hematocrit 39.8 % (33.0-51.0); Hemoglobin 13.5 g/dL (11.5-16.0); IMMATURE GRAN ABSOLUTE AUTO 0.06 K/mm3 (0.00-0.10); IMMATURE GRAN PERCENT AUTO 1 % (0-1); LYMPHOCYTES ABSOLUTE AUTO 1.15 K/mm3 (0.84-5.20); LYMPHOCYTES PERCENT AUTO 12 % (21-46); MONOCYTES ABSOLUTE AUTO 1.29 K/mm3 (0.16-1.47); MONOCYTES PERCENT AUTO 13 % (4-13); Mean Corpuscular HGB 31.3 pg (26.0-34.0); Mean Corpuscular HGB Conc 33.9 g/dL (31.5-36.5); Mean Corpuscular Volume 92 fL (80-100); Mean Platelet Volume 10.1 fL (9.1-12.4); NEUTROPHILS ABSOLUTE AUTO 7.28 K/mm3 (1.96-9.15); NEUTROPHILS PERCENT AUTO 74 % (41-73); Platelet Count 221 K/mm3 (150-400); RDW Coefficient Variation 13.3 % (11.7-14.2); RDW Standard Deviation 45.2 fL (35.1-46.3); Red Blood Cell Count 4.32 M/mm3 (3.80-5.20); White Blood Cell Count 9.82 K/mm3 (4.00-11.30)
[2025-03-09 07:33] LABS: Bun/Creatinine Ratio 29.7 (12.0-20.0); Calcium, Blood 9.8 mg/dL (8.5-10.1); Creatinine, Blood 0.98 mg/dL (0.40-1.00); Potassium, Blood 2.9 mmol/L (3.5-5.5)
[2025-03-09] MEDS ORDERED: Potassium Chloride 20 MEQ TabCR PO ONE (08:10)
--- NOTE | 2025-03-09 08:30 | NUR ---
NURSING PCU DAYSHIFT: Assumed care of pt at approx 0700. A/O, pleasant, cooperative w/care. Mild general weakness w/chronic BLE weakness, assistive devices in use, ambulates w/minimal assistance. C/O 02/11 "migraine" which is improved since NOC shift per pt, denies need for further tx at this time. Skin fragile, BLE w/scattered blisters/scabs, RLE red/weeping w/dressing in place, redness to R inguinal fold. Tele in place, NSR, no c/o CP/pressure, SBP 120's prior to a.m. meds, 1-2+ BLE edema (R>L). L/S fairly cta t/o w/dim bases, respirations shallow, O2 sat low 90's on RA, no noted cough, denies dyspnea. Abd SNT, BT+ w/last BM this a.m., voiding frequently and w/o difficulty. PIV x2, s/l. No s/s of acute distress at this time. Pt verbalized anticipation of discharge home today, discharge plan discussed. Seen by PMD, new d/o received, home O2 eval to be completed, RT aware. Pt currently OOB in recliner, denies any current questions/needs, call light in reach, cont to monitor for changes.
[2025-03-09] MEDS ORDERED: Metolazone 5 MG Tab PO SCH (09:00)
[2025-03-09] MEDS ORDERED: Bumetanide 0.25 MG/ML 4ML ViaL IV SCH (09:00)
[2025-03-09] MEDS ORDERED: Cinacalcet HCL 30 MG Tab PO SCH (09:00)
[2025-03-09] MEDS ORDERED: Spironolactone 25 MG Tab PO SCH (09:00)
[2025-03-09] MEDS ORDERED: Potassium Chloride 10 Meq Tablet SA PO ONE (13:05)
[2025-03-09] MEDS ORDERED: Fluconazole 100 MG Tab PO ONE ×2 (14:00→14:10)
--- NOTE | 2025-03-09 18:00 | NUR ---
NURSING PCU DAYSHIFT SUMMARY: Pt has done fairly well w/o shift. Respiratory and cardiac status unchanged. K+ remains low, discussed w/PMD, new d/o received. Pt unable to tolerate IV K+, diuretic meds changed, additional PO K+ administered as ordered, next labs scheduled for 1899. Pt has spent majority of shift OOB in recliner, tolerated well. RLE wound care/dressing change completed. Home O2 eval completed, NOC O2 order sent to [facility] by manager respiratory care. Multiple calls placed in attempt to schedule O2 delivery w/messages left, no callback received. Message sent to manager respiratory care w/request to f/u regarding O2 delivery for discharge home tomorrow 03/10. Pt denies any current needs. Call light in reach, monitor until rpt is given to KEO RN.
[2025-03-09 20:04] LABS: Potassium, Blood 3.6 mmol/L (3.5-5.5)
[2025-03-09 20:37] LABS: Magnesium, Blood 1.6 mg/dL (1.6-2.4)
[2025-03-10 04:18] VITALS: BP 126/72
[2025-03-10 04:38] LABS: Bun/Creatinine Ratio 34.3 (12.0-20.0); Calcium, Blood 9.6 mg/dL (8.5-10.1); Creatinine, Blood 1.02 mg/dL (0.40-1.00); Magnesium, Blood 1.7 mg/dL (1.6-2.4); Potassium, Blood 3.5 mmol/L (3.5-5.5)
--- NOTE | 2025-03-10 04:44 | NUR ---
SHIFT SUMMARY THIS RN ASSUMED CARE OF PATIENT AT 1900. PT A&O X4. ABLE TO MAKE NEEDS KNOWN. PT DENIES CHEST PAIN/PRESSURE DURING THIS SHIFT. OCCASIONAL DYSPNEA WITH EXERTION AND AMBULATION. BP STABLE. SR WITH HR 90'S. ON RA WHILE AWAKE AND 1L VIA NC WHILE SLEEPING WITH SPO2 >92%. POTASSIUM RECHECKS WNL. PT IND IN ROOM WITH ADL'S. MEASURING URINE FOR ACCURATE I/O'S. STANDING WEIGHT DONE THIS AM. MEDICATED PER EMAR FOR BACK/NECK PAIN AND INTERMITTENT HEADACHE. DRESSING TO RT CALF C/D/I; NO WEEPING NOTED. RT FOOT CONTINUES TO BE RED AND EDEMATOUS, NO CHANGE SINCE BEGINNING OF SHIFT. ELEVATING BLE. X2 PIV'S SALINE LOCKED. BED IN LOWESDT POSITION AND CALL LIGHT WITHIN REACH. THIS RN WILL REPORT TO ONCOMING DAYSHIFT RN.
[2025-03-10 08:23] VITALS: BP 127/60
[2025-03-10] MEDS ORDERED: Potassium Chloride 20 MEQ TabCR PO ONE (09:00)
[2025-03-10] MEDS ORDERED: Metolazone 5 MG Tab PO SCH (09:00)
[2025-03-10] MEDS ORDERED: Bumetanide 1 MG Tab PO SCH (09:00)
[2025-03-10] MEDS ORDERED: Diflucan150 MG PO (09:58)
[2025-03-10] MEDS ORDERED: DOXY100 PO (10:03)
[2025-03-10] MEDS ORDERED: MICONAZOLE NITR85 GM TOP (10:04)
[2025-03-10] MEDS ORDERED: XARELTO15 MG PO (10:06)
[2025-03-10] MEDS ORDERED: XARELTO20 MG PO (10:07)
--- NOTE | 2025-03-10 13:33 | NUR ---
SHIFT SUMMARY/ DISCHARGE: PT DISCHARGED TO HOME IN NO ACUTE STRESS AT THIS TIME. PT WAS GIVEN WRITTEN AND VERBAL DC INSTRUCTIONS AND WAS INSTRUCTED TO COME BACK TO THIS FACILITY IF SYMPTOMS WORSE. PT DENIES ANY QUESTIONS OR CONCERNS AT THIS TIME. IV'S WERE REMOVED WITH CATHETER INRACT. PTS BELONGING WERE COLLECTED AND TAKE HOME WITH PT. PT DENIES ANY FURTHER QUESTIONS OR CONCERNS AND WAS WHEELED OUT VIA WHEEL CHAIR BY [place].
== END 2025-03-10 13:41 | disposition home or self-care (01) | DRG 175 ==
LOC: ER 00:55 → ERHOLD 00:56 → PCU 00:56
PROVIDERS: Emergency Medicine; Internal Medicine; Student in an Organized Health Care Education/Training Program; ADMIT Internal Medicine
DX: I26.99 Other pulmonary embolism without acute cor pulmonale (principal); I21.A1 Myocardial infarction type 2; Z68.41 Body mass index [BMI] 40.0-44.9, adult; L03.116 Cellulitis of left lower limb; L03.115 Cellulitis of right lower limb; F41.9 Anxiety disorder, unspecified; M50.30 Other cervical disc degeneration, unspecified cervical region; E87.6 Hypokalemia; M79.7 Fibromyalgia; Z96.652 Presence of left artificial knee joint; E21.3 Hyperparathyroidism, unspecified; E66.9 Obesity, unspecified; E03.9 Hypothyroidism, unspecified; R09.02 Hypoxemia; G62.9 Polyneuropathy, unspecified; Z91.048 Other nonmedicinal substance allergy status; Z88.8 Allergy status to other drugs, medicaments and biological substances; Z91.040 Latex allergy status; Z88.5 Allergy status to narcotic agent; Z79.899 Other long term (current) drug therapy; Z79.891 Long term (current) use of opiate analgesic; Z79.2 Long term (current) use of antibiotics; Z79.890 Hormone replacement therapy; Z87.440 Personal history of urinary (tract) infections; Z85.3 Personal history of malignant neoplasm of breast; Z98.890 Other specified postprocedural states; Z87.19 Personal history of other diseases of the digestive system; Z90.49 Acquired absence of other specified parts of digestive tract; Z98.1 Arthrodesis status
CPT/HCPCS: 36415; 71046; 71260; 80048; 80053; 83735; 83880; 84100; 84132; 84484; 85025; 85379; 85520; 85610; 85730; 93005; 93010; 93306; 93970; 94761; 94762; 96374; 96375; 99285-25; A9270; G0378; J1644; J1885; J2405; J3480; J7030; Q9967

== ENCOUNTER 2025-05-05 14:16 | Emergency (ER) | payer OTHER ==
[~2025-05-05] VITALS: Ht 157.5 cm; Wt 117.9 kg
[~2025-05-05 14:16] MED LIST changes: +DOXY100 PO; +Diflucan150 MG PO; +MICONAZOLE NITR85 GM TOP; +XARELTO15 MG PO; +XARELTO20 MG PO
[2025-05-05 14:35] VITALS: BP 133/75
[2025-05-05] MEDS ORDERED: DOXY100 PO (14:43)
== END 2025-05-05 14:42 | disposition home or self-care (01) ==
LOC: ER 14:16
DX: L03.116 Cellulitis of left lower limb (principal); Z91.040 Latex allergy status; Z79.899 Other long term (current) drug therapy; Z88.5 Allergy status to narcotic agent; Z79.890 Hormone replacement therapy; Z79.01 Long term (current) use of anticoagulants; Z59.89 Other problems related to housing and economic circumstances
CPT/HCPCS: 99282